=== PATIENT | male | born 1980 | race Caucasian/White ===

== ENCOUNTER → 2016-12-11 | Outpatient (CLI) | payer OTHER ==
--- NOTE | 2016-12-20 01:06 | POLYSOMNOGRAPH REPORT ---
SLEEP STUDY REPORT CLINICAL DATA: The patient is a 36-year-old male with a BMI of 33.9. He is referred by Dr. Sania Liu. [facility] His history is that of snoring, somnolence, and insomnia. He has a history of PTSD. There is also a history of migraine headaches. The [place] sleepiness score is 6 out of a possible 24. This was a diagnostic in-lab sleep study. SLEEP ARCHITECTURE: Total sleep period was 453 minutes. Total sleep time was 445 minutes. The sleep efficiency is high at 97%. The sleep onset latency was short at 4.5 minutes. Wake after sleep onset was minimal at 8 minutes. The REM latency was normal at 67.0 minutes. Sleep consisted of stage N1 3%, stage N2 39%, stage N3 20%, stage REM 38%. AROUSAL DATA: The patient had a total of 9 arousals including 1 spontaneous arousal, 5 PLM arousals, and 3 snoring arousals. The arousal index was 1. PERIODIC LIMB MOVEMENTS DATA: The patient had a total of 89 periodic limb movements of sleep for a PLM index of 12.0 events per hour. There were only 5 arousals associated with limb movements for an arousal index of 0.7. RESPIRATORY DATA: The patient had a total of 16 respiratory events including 1 central apnea, 1 obstructive apnea, and 14 hypopneas. The 4% hypopnea roll was utilized. The apnea hypopnea index is normal at 2.2 events per hour. This would suggest no significant sleep apnea. OXIMETRY DATA: The average saturation was 90%. The minimum saturation was 84%. He had a total of 6 minutes with saturations less than 88%. ELECTROCARDIOGRAM: The cardiac rhythm was normal sinus. No significant arrhythmia was noted. The cardiac rates ranged from 48-99 beats per minute with an average of 65 beats per minute. PARKING WORKER COMMENTS: The patient slept in the right, left, supine, and upright positions. No cardiac arrhythmias were noted. No bruxism noted. Snoring was noted and scored as a 3 on a scale of 0 through 5. Mr. Reed did not awaken to use the restroom during the night time. He indicated that he slept better than usual during this sleep study. IMPRESSION: 1. Primary snoring. COMMENTS: The patient had a high sleep efficiency during this study. The sleep architecture showed increased REM at 38%. There were a mild number of leg movements with few arousals. There was no significant sleep apnea with a normal apnea-hypopnea index of 2.2. Oxygenation had some transient desaturations. The patient is on a number of medications which could affect daytime alertness including clonazepam, methadone, sertraline, tizanidine, and trazodone. Clinical correlation is advised. High REM density was noted during the study. This is despite the fact he was taking sertraline, which would suppress REM sleep somewhat. RECOMMENDATIONS: 1. Consideration is given to doing an overnight pulse oximetry study in light of the desaturation noted intermittently during this sleep study. 2. The patient has a history of snoring. His BMI is elevated at 33.9. Weight loss is advised. 3. Ideally, the patient should avoid sleeping in the supine position if possible as one typically has more respiratory events and snoring while supine. MTDD
== END | disposition home or self-care (01) ==
LOC: C.NEUR 21:00
PROVIDERS: ATTEND Internal Medicine Pulmonary Disease
DX: R40.0 Somnolence (principal)